=== PATIENT | female | born 1965 | race Caucasian/White ===

== ENCOUNTER → 2023-10-28 08:06 | Outpatient (REF) | payer BC, SELFPAY | LOC: HWWDC 08:06 | PROVIDERS: ATTENDING PHYSICIAN Physician Assistant Medical | DX: Z12.31 Encounter for screening mammogram for malignant neoplasm of breast (principal) | CPT/HCPCS: 77063; 77067 ==

== ENCOUNTER 2024-04-12 10:32 | Inpatient (IN) | payer OTHER, SELFPAY ==
[2024-04-10] VITALS (14 sets, daily range): BP systolic 134–188; BP diastolic 71–101; BMI 36.3; BMI 35.1
--- NOTE | 2024-04-10 13:40 | ED.CVA ---
History of Present Illness
<Orly Guerra PA-C - Last Filed: 04/10/24 23:37>
General
Chief Complaint: CVA/TIA Symptoms
Source: patient and significant other (Boyfriend at bedside)
Exam Limitations: none
Time Seen by Provider: 04/10/24 13:26
Nursing documentation reviewed up to this point in time: agreed with
Onset of Stroke Symptoms
Onset of symptoms known: No
Time pt last seen normal is known: No
History of Present Illness
History of Present Illness:
59-year-old female with history hypertension presenting to the emergency department due to concerns of slurred speech. Apparently�around dinnertime last night, prior to eating patient's boyfriend noted that her speech seemed a little slurred
although patient herself did not notice this. Upon waking this morning�slurred speech was worse and both boyfriend and patient noticed prompting visit to the emergency department.
Patient denies any associated headache, neck pain, numbness/tingling, weakness in extremities currently. No chest pain, shortness of breath, or back pain. No visual changes or confusion. No ataxia. Patient denies any alcohol use or drug use.
Patient denies any history of similar symptoms. No recent trauma.
Past History
<Orly Guerra PA-C - Last Filed: 04/10/24 23:37>
Past History
ED Past Medical History: HTN
ED Past Surgical History: None
Social History
Tobacco: Non-smoker
Personal:
Living: with family
Review of Systems
<Orly Guerra PA-C - Last Filed: 04/10/24 23:37>
Review of Systems
Allergies reviewed?: Yes
All Other Systems: ROS reviewed and negative except as documented in HPI and ROS
Phy Exam
<Orly Guerra PA-C - Last Filed: 04/10/24 23:37>
Physical Exam
Physical Exam:
Vitals: Hypertensive, otherwise vital signs stable. Afebrile
General: Patient is well appearing, no acute distress
Skin: Warm and dry, no rashes or lesions
Head: Normocephalic, atraumatic
Eyes: Sclera nonicteric. EOMs intact. Pupils equal round reactive light bilaterally. Visual booth intact. No nystagmus.
Throat: Protecting airway
Neck: Normal ROM, no cervical spine tenderness, no meningismus
Cardiac: Regular rate and rhythm, no murmurs.
Pulm: Normal respiratory effort, no wheezes, rales, rhonchi heard on exam.
Abdomen: Abdomen soft. No abdominal tenderness.
Extremities: No evidence of cyanosis or edema. Strength 5 out of 5 in upper and lower extremities without drift
Neuro: AAOx3. CN II-XII intact. Very mild. No facial droop or asymmetry. Sensation intact and equal bilaterally. Normal cerebellar exam
Psychiatric: Normal affect.
Scores
<Orly Guerra PA-C - Last Filed: 04/10/24 23:37>
NIH Stroke Score
Level of Consciousness: 0 - Alert
LOC Questions: 0-Answers both correctly
LOC Commands: 0-Performs both correctly
Best Horizontal Gaze: 0-Normal
Visual Booth: 0=Normal, no visual loss
Facial Palsy: 0=Normal, symmetrical
Motor - Right Arm: 0=No drift 10 seconds
Motor - Left Arm: 0=No drift 10 seconds
Motor - Right Le-No drift 5 seconds
Motor - Left Le-No drift 5 seconds
Limb Ataxia: 0-Absent
Sensation: 0-Normal
Best Language: 0-No aphasia
Dysarthria: 1-Mild slurring
Extinction and Inattention: 0-No abnormality
Total Score:: 1
<Violetta Hearn DO - Last Filed: 04/10/24 17:16>
NIH Stroke Score
Total Score:: 1
Course
<Orly Guerra PA-C - Last Filed: 04/10/24 23:37>
Orders/Labs/Results
Orders:
Orders
04/10/24 12:54
Electrocardiogram (*1) Urgent
Reason for Study: Chest Pain
Cardiac Monitoring- Treatment ONCE
EKG- Treatment ONCE
IV Insert/Care/Rem.- Treatment PRN
04/10/24 13:36
Complete Blood Count/With Diff Urgent
Comprehensive Metabolic Panel Urgent
Glycohemoglobin (HgbA1c) Urgent
Troponin I Urgent
04/10/24 13:54
CT Head W/o Iv Contrast Urgent
Comment:
Reason For Exam: Slurred speech
04/10/24 17:09
CT Head & Neck Angio W/wo IV Urgent
Comment: per Neuro
Reason For Exam: slurred speech
Aspirin Chewable [Low Strength Aspirin] 324 mg PO NOW STA
04/10/24 20:23
NEUROLOGY CONSULT Routine
Consulting Provider: Ward Renteria
Was physician already notified: Yes
Reason for consult: Episodic slurred speech since last night
Amlodipine [Norvasc] 5 mg PO NOW STA
Atorvastatin [Lipitor] 40 mg PO NOW STA
Clopidogrel Bisulfate [Plavix] 300 mg PO NOW STA
04/10/24 20:25
Admit/Transfer Patient As Directed
Co-Sign Provider:
Level of Care: Observation services
Assign to:: Telemetry
Physician / Group: luis hale
Diagnosis: Reported slurred speech concerning for TIA/CVA
Reason for Telemetry: CVA/TIA
Date to Stop Telemetry: 04/13/24
Time to Stop Telemetry: 11:00
Code Status As Directed
Resuscitation Status: Full Code
04/10/24 20:27
PRN Pain Medication Management As Directed
May give lesser potent ordered pain med per pt: Yes
preference::
Protocol:: Medication orders for pain may be administered in a
manner that supports deferring to patient preference
when the pt is:
- Requesting an ordered lesser potent pain medication.
Least to most potent pain medications are defined
as: acetaminophen < NSAID < tramadol < opioids
(morphine, oxycodone, hydromorphone).
- Requesting a lesser dose of the same medication IF
ORDERED.
- Requesting a less intrusive route of administration
if both routes are prescribed by the provider (PO <
IV).
04/10/24 21:51
Acetaminophen [Tylenol/Feverall] 650 mg RECTAL Q4HPRN PRN
Acetaminophen [Tylenol] 650 mg PO Q4HPRN PRN
04/10/24 21:51
Case Management Consult ONCE
Case Management Consult: Discharge Planning
Comment: stroke/tia
DIETARY CONSULT Routine
Reason for Consult: stroke/TIA
Home Health Speech Therapist Urgent
MR Brain Without Contrast Routine
Comment:
Reason For Exam: stroke/TIA
OK for patient to be off Cardiac Monitoring for MRI: Yes
Recent pill cam endoscopy?: No
Pacemaker/Defibrillator?: No
Activity As Directed
Activity Level: As Tolerated
NIH Stroke Scale As Directed
Directions: Per protocol
Comment: every shift and with any change in condition or mental status
Neurological Checks As Directed
Frequency: q4h
Additional Instructions:: q4h x 24h upon admission to the floor, then qshift & with any change in condition
and mental status
Patient Education As Directed
Type: Stroke education packet
Comment: provide to patient and family
Pneumatic Compression Sleeves As Directed
Type: Knee high
Vital Signs As Directed
Frequency: Per unit guidelines
Ot Eval And Treat Routine
Pt Eval And Treat Routine
Activity Level: As Tolerated
US Cerebrovascular Routine
Comment:
Reason For Exam: stroke/TIA
DX Deep Vein Thrombosis Video Routine
04/10/24 22:00
Amlodipine [Norvasc] 5 mg PO HS
04/11/24 06:00
Basic Metabolic Panel IN AM
Cardiovascular Evaluation IN AM
Complete Blood Count/With Diff IN AM
04/11/24 08:00
Aspirin Chewable [Low Strength Aspirin] 81 mg PO DAILY
Cetirizine HCl [Zyrtec] 10 mg PO DAILY
Clopidogrel Bisulfate [Plavix] 75 mg PO DAILY
04/11/24 18:00
Atorvastatin [Lipitor] 40 mg PO QPM
04/13/24 11:00
DC Protocol for Telemetry ONCE
Abnormal Lab Results
04/10/24
13:36
Neutrophils % 77.4 H %
(42.2-75.2)
Lymphocytes % 17.1 L %
(20.5-51.1)
BUN 19 H mg/dl
(7-17)
Glucose 109 H mg/dl
(70-99)
04/10/24 13:36
04/10/24 13:36
Vital Signs
Initial and Last Documented VS:
Initial Vital Signs
Temp BP
99.2 F 188/101
04/10/24 12:07 04/10/24 12:07
Last Documented Vital Signs
Temp Pulse Resp BP Pulse Ox
97.8 F 76 18 176/84 96
04/10/24 21:58 04/10/24 21:58 04/10/24 21:58 04/10/24 21:58 04/10/24 21:58
<Violetta Hearn, DO - Last Filed: 04/10/24 17:16>
Orders/Labs/Results
Orders:
Orders
04/10/24 12:54
Electrocardiogram (*1) Urgent
Reason for Study: Chest Pain
Cardiac Monitoring- Treatment ONCE
EKG- Treatment ONCE
IV Insert/Care/Rem.- Treatment PRN
04/10/24 13:36
Complete Blood Count/With Diff Urgent
Comprehensive Metabolic Panel Urgent
Glycohemoglobin (HgbA1c) Urgent
Troponin I Urgent
04/10/24 13:54
CT Head W/o Iv Contrast Urgent
Comment:
Reason For Exam: Slurred speech
04/10/24 17:09
CT Head & Neck Angio W/wo IV Urgent
Comment: per Neuro
Reason For Exam: slurred speech
Aspirin Chewable [Low Strength Aspirin] 324 mg PO NOW STA
04/10/24 20:23
NEUROLOGY CONSULT Routine
Consulting Provider: Ward Renteria
Was physician already notified: Yes
Reason for consult: Episodic slurred speech since last night
Amlodipine [Norvasc] 5 mg PO NOW STA
Atorvastatin [Lipitor] 40 mg PO NOW STA
Clopidogrel Bisulfate [Plavix] 300 mg PO NOW STA
04/10/24 20:25
Admit/Transfer Patient As Directed
Co-Sign Provider:
Level of Care: Observation services
Assign to:: Telemetry
Physician / Group: luis hale
Diagnosis: Reported slurred speech concerning for TIA/CVA
Reason for Telemetry: CVA/TIA
Date to Stop Telemetry: 04/13/24
Time to Stop Telemetry: 11:00
Code Status As Directed
Resuscitation Status: Full Code
04/10/24 20:27
PRN Pain Medication Management As Directed
May give lesser potent ordered pain med per pt: Yes
preference::
Protocol:: Medication orders for pain may be administered in a
manner that supports deferring to patient preference
when the pt is:
- Requesting an ordered lesser potent pain medication.
Least to most potent pain medications are defined
as: acetaminophen < NSAID < tramadol < opioids
(morphine, oxycodone, hydromorphone).
- Requesting a lesser dose of the same medication IF
ORDERED.
- Requesting a less intrusive route of administration
if both routes are prescribed by the provider (PO <
IV).
04/10/24 21:51
Acetaminophen [Tylenol/Feverall] 650 mg RECTAL Q4HPRN PRN
Acetaminophen [Tylenol] 650 mg PO Q4HPRN PRN
04/10/24 21:51
Case Management Consult ONCE
Case Management Consult: Discharge Planning
Comment: stroke/tia
DIETARY CONSULT Routine
Reason for Consult: stroke/TIA
Home Health Speech Therapist Urgent
MR Brain Without Contrast Routine
Comment:
Reason For Exam: stroke/TIA
OK for patient to be off Cardiac Monitoring for MRI: Yes
Recent pill cam endoscopy?: No
Pacemaker/Defibrillator?: No
Activity As Directed
Activity Level: As Tolerated
NIH Stroke Scale As Directed
Directions: Per protocol
Comment: every shift and with any change in condition or mental status
Neurological Checks As Directed
Frequency: q4h
Additional Instructions:: q4h x 24h upon admission to the floor, then qshift & with any change in condition
and mental status
Patient Education As Directed
Type: Stroke education packet
Comment: provide to patient and family
Pneumatic Compression Sleeves As Directed
Type: Knee high
Vital Signs As Directed
Frequency: Per unit guidelines
Ot Eval And Treat Routine
Pt Eval And Treat Routine
Activity Level: As Tolerated
US Cerebrovascular Routine
Comment:
Reason For Exam: stroke/TIA
DX Deep Vein Thrombosis Video Routine
04/10/24 22:00
Amlodipine [Norvasc] 5 mg PO HS
04/11/24 06:00
Basic Metabolic Panel IN AM
Cardiovascular Evaluation IN AM
Complete Blood Count/With Diff IN AM
04/11/24 08:00
Aspirin Chewable [Low Strength Aspirin] 81 mg PO DAILY
Cetirizine HCl [Zyrtec] 10 mg PO DAILY
Clopidogrel Bisulfate [Plavix] 75 mg PO DAILY
04/11/24 18:00
Atorvastatin [Lipitor] 40 mg PO QPM
04/13/24 11:00
DC Protocol for Telemetry ONCE
Abnormal Lab Results
04/10/24
13:36
Neutrophils % 77.4 H %
(42.2-75.2)
Lymphocytes % 17.1 L %
(20.5-51.1)
BUN 19 H mg/dl
(7-17)
Glucose 109 H mg/dl
(70-99)
04/10/24 13:36
04/10/24 13:36
Vital Signs
Initial and Last Documented VS:
Initial Vital Signs
Temp BP
99.2 F 188/101
04/10/24 12:07 04/10/24 12:07
Last Documented Vital Signs
Temp Pulse Resp BP Pulse Ox
97.8 F 76 18 176/84 96
04/10/24 21:58 04/10/24 21:58 04/10/24 21:58 04/10/24 21:58 04/10/24 21:58
<Orly Guerra PA-C - Last Filed: 04/10/24 23:37>
MDM/Problems Addressed
Differential Diagnosis Includes:
Not limited to: Hypertensive urgency, hypertensive emergency, CVA, mass, etc.
MDM/Problems Addressed:
59-year-old female w/ history hypertension presenting with slurred speech ongoing since yesterday without any other neurologic symptoms. No headache, neck pain, visual changes, weakness, numbness/tingling. No trauma. Patient initially with
significant hypertension on arrival although improved by my assessment without intervention. Otherwise she has stable vital signs. Physical exam as above. Patient very well-appearing, no apparent distress. Patient alert and oriented x 3.
Cardio/pulmonary assessment remarkable. Neuroexam with very mild slurred noted only when reading sentences. Patient and patient's significant other do state there is a significant change from her baseline speech. Difficult to appreciate on
physical exam. No other focal deficits noted. Patient has equal strength in bilateral upper and lower extremities and normal sensation. No extremity drift. NIH of 1. Differential include hypertensive urgency/emergency given elevated BP on
arrival. Will check head CT given concern for possible central process, CVA versus mass. Will check basic labs. EKG initiated in triage shows normal sinus rhythm without acute ischemic changes.
Update: Labs reviewed. No clinically significant abnormalities. Blood pressure has remained in 150s/80s. Mild slurred speech remains per patient and boyfriend. CT head shows no acute abnormalities. Ultimately�concern would be CVA. Case was
discussed with neurology on-call who agrees that symptoms are concerning for possible stroke despite negative workup. TNK not indicated given symptoms ongoing since yesterday and NIH of 1. Will check CTA head/neck, give aspirin 324 in ED. Will
admit patient for further stroke workup including MRI, carotid ultrasound, neuroconsult, etc. Patient agreeable with plan and accepted to hospital service in stable condition. Patient seen with attending physician.
Chronic conditions affecting care:
Hypertension
Acute Exacerbation and/or Progression of Chronic Illness:
[place]
<Orly Guerra PA-C - Last Filed: 04/10/24 23:37>
*Radiology
Radiology exam reviewed: preliminary read by ED provider (Head CT reviewed by mo-no acute abnormalities) and radiology read reviewed
*Pulse Oximetry
Patient hypoxic: no
*EKG
Interpreted by ED Provider?: Yes
EKG Intrepretation Date: 04/10/24
Interpretation: normal
Comparison EKG: no changes
Heart Rate: 80
Rate: normal
Rhythm: sinus
[place]: normal axis
Interval: normal QT interval
QRS Pattern: normal QRS
Ischemia: no ischemia
*Hob Mill Operator Interpretation
Rate: normal
Interpretation: normal
Heart Rate: 74
Rhythm: sinus
*Critical Care Note
Total Time (30-74mins, 75-104mins- exclusive of procedures): Not Applicable
<Orly Guerra PA-C - Last Filed: 04/10/24 23:37>
Patient Management
Discussion with other providers: Hospitalist and Junior Accountant (Neurology-Dr. Renteria)
Escalation/DeEscalation of care consider admission/obs:
Admit for stroke workup
ED Attending Note
<Orly Guerra PA-C - Last Filed: 04/10/24 23:37>
-
Portions of this chart may have been created with voice recognition software.� Occasional wrong word or��sound alike� substitutions may have occurred due to the inherent limitations of voice recognition software.
<Violetta Hearn DO - Last Filed: 04/10/24 17:16>
ED Attending Note
Patient seen and examined by attending physician: Yes
I performed a history and physical exam of patient and discussed management with resident, I reviewed resident's note and agree with documented findings and plan of care.: Yes
ED Attending Note:
59-year-old woman with history of hypertension, maintained on amlodipine presents with slurred speech that began yesterday evening around dinnertime. First noted by her significant other and continues today, also noted by patient. She denies word
searching, no stuttering but intermittent slurring of her words. No other associated symptoms, no headache, no weakness or numbness, no difficulty with ambulation. No history of similar episodes in the past.
Significant hypertension noted initially, has improved without specific intervention.
No focal neurodeficits on exam save for very minimal intermittent slurring of words noted most noted when patient is reading out loud. No hesitation nor word searching.
Concern for CVA.
Labs are unremarkable.
Plain CT of the head is unremarkable.
EKG shows normal sinus rhythm, no acute ST-T wave abnormalities.
Case discussed with neurology. Agree that symptoms are concerning for stroke.
Recommending CTA head and neck, dual antiplatelet, Lipitor 40 mg. Will admit for observation for stroke workup.
Patient agreeable with this plan.
Discharge Plan
Departure
Patient Disposition: Admit
Date of Disposition: 04/10/24
Time of Disposition: 17:45
Presentation/result/management discussed w/ accepting MD/DO: Hospitalist
Discharge Problem:
Slurred speech
Interventions
Interventions:
*Risk Screen - Suicide Last Done: 04/10/24 21:58
*General Assessment Last Done: 04/10/24 12:38
*Neglect/Abuse Screening Last Done: 04/10/24 12:07
ED- Fall Risk Assessment Last Done: 04/10/24 12:38
*ED COVID-19 Vaccine History Last Done: 04/10/24 21:58
*Nursing Disposition Last Done: 04/10/24 21:39
ED- Pulmonary Assessment Last Done: 04/10/24 19:59
ED- Neurological Assessment Last Done: 04/10/24 19:59
ED- Cardiac Assessment Last Done: 04/10/24 19:59
ED Swallowing Screen Last Done: 04/10/24 12:39
Discharge Date and Time
Discharge Date/Time: 04/10/24 21:41
[2024-04-10 13:44] LABS: % Basophils 0.4 % (0-2); % Eosinophils 0.1 % (0-6); % Immature Granulocytes 0.3 % (0-0.5); % Lymphocytes 17.1 % (20.5-51.1); % Monocytes 4.7 % (1.7-9.3); % Neutrophils 77.4 % (42.2-75.2); Absolute Lymphocytes 1.3 10^3/uL (1.2-3.4); Absolute Monocytes 0.4 10^3/uL (0.1-0.6); Absolute Neutrophils 6.1 10^3/uL (1.4-6.5); Hematocrit 44.1 % (37.0-47.0); Hemoglobin 14.9 g/dL (12.0-16.0); Mean Corp Hgb Conc. 33.8 g/dL (33.0-37.0); Mean Corpuscular Hgb 29.4 pg (27.0-31.0); Mean Corpuscular Volume 87.2 fL (81.0-99.0); Mean Platelet Volume 10.2 fL (7.4-10.4); Nucleated Red Blood Cells % 0 %; Platelet Count 303 10^3/uL (130-400); Red Blood Cell Count 5.06 10^6/uL (4.20-5.40); White Blood Cell Count 7.8 10^3/uL (4.8-10.8)
[2024-04-10 14:01] LABS: ALT (SGPT) 20 U/L (0-35); AST (SGOT) 24 U/L (14-36); Albumin 4.4 g/dl (3.5-5.0); Alkaline Phosphatase 110 U/L (38-126); Blood Urea Nitrogen 19 mg/dl (7-17); Calcium 9.7 mg/dl (8.4-10.2); Carbon Dioxide 27 mmol/L (22-30); Chloride 103 mmol/L (98-107); Estimated Creatinine Clearance 94 ml/min; Glucose 109 mg/dl (70-99); Potassium 4.2 mmol/L (3.5-5.1); Sodium 141 mmol/L (135-145); Total Bilirubin 0.7 mg/dl (0.2-1.3); Total Protein 7.2 g/dl (6.3-8.2); eGFR > 60.00
[2024-04-10 14:27] LABS: Troponin I < 0.012 ng/ml
[2024-04-10] MEDS: LOW STRENGTH ASPIRIN 324 MG PO (18:02)
--- NOTE | 2024-04-10 19:44 | HPS.HSE ---
Family Physician
-
Family Physician: * NONE
Chief Complaint
-
Reported thickened slurred speech episodic since last night 04/09/2024
History of Present Illness
59-year-old female complaining of slurred speech starting around dinnertime last night 04/09/2024. Prior to eating the patient's boyfriend noticed that her speech seemed a little slurred. When in the room speaking with the patient's daughter and
boyfriend they state that some words sound thick as though she had Novocain at the doctor's office. They still appreciate some words when she is talking during my exam however I do not hear any thickness, slurred speech dysarthria or expressive
aphasia. Upon waking this morning slurred speech was worse they decided to come to the emergency room for evaluation. Patient denies headache, blurred vision, numbness, tingling, weakness in extremities, fever, chills, chest pain, palpitations,
cough, shortness of breath, abdominal pain, nausea, vomiting, diarrhea, urinary symptoms. She denies alcohol or drug use. She has past medical history of hypertension she presented with blood pressure 188/101. She was given aspirin 324 mg
chewable in the ER. She had negative CT head. Her CTA head and neck is pending, she has past medical history of hypertension, class I obesity. Patient reports brother has unknown type of clotting disorder I strongly urged patient to get herself
tested to make sure she is also not a carrier.
Medical History
Past Medical History
Past Medical History: Reports Other
Additional Past Medical History:
Hypertension
Class I obesity�BMI 36.3
Renal calculi
Past Surgical History: Reports Other
Additional Past Surgical History:
Cholecystectomy
Kidney stone removal 2020
Social History
Tobacco: Non-smoker
Alcohol: None
Drug: None
Personal: Single
Living: With Family (Boyfriend)
Family History
Family History: Other (Father alive retired surgeon will not tell family any of his medical history, brother history of clotting disorder unknown type, mother after slip and fall/failure to thrive, 2 brothers eldest with hypertension)
Allergies / Home Medications
Allergies reflects when Allergies were last updated in [employer].
Home Medications with original date entered in [employer]
Allergy/Medication List:
Allergies
Allergy/AdvReac Type Severity Reaction Status Date / Time
seasonal Allergy Itching Uncoded 04/10/24 12:06
Home Medications
amlodipine 5 mg tablet 5 mg PO HS 04/14/21
cetirizine 10 mg tablet 10 mg PO DAILY 04/10/24
Review of Systems
-
History Source: Patient and Family (Boyfriend and daughter at bedside)
A 12 point ROS was completed and negative except as noted: Yes
Constitutional: Denies Fever, Fatigue or Night Sweats
EENT: Reports Other (Reported episodic thick sounding words with speech since last night when talking in sentences); Denies Sore Throat
Physical Exam
Vital Signs
Vital Signs
Temp Pulse Resp BP Pulse Ox
99.2 F 82 17 151/82 96
04/10/24 12:07 04/10/24 18:00 04/10/24 18:00 04/10/24 18:00 04/10/24 18:00
Physical Exam
General: Comfortable, Conversant and Obese; No Fever, Chills or Slurred Speech
HEENT: NormoCephalic, Anicteric, Moist mucous membranes, PERRLA, [place] Conjunctivae, No Ptosis and Other (Reported episodic thick sounding words with speech since last night when talking in sentences)
Respiratory: Clear; No Wheezes, Rales or Rhonchi
Cardiac: S1/S2 and Regular Rhythm; No Murmur, Rub, Gallop or Peripheral Edema
GI: Soft, Non Tender, Non Distended, Normal Bowel Sounds and No Hepatosplenomegaly
Genito-urinary: Deferred by me
Musculoskeletal: No Clubbing, No Cyanosis and No Edema
Skin: Warm and Dry; No Rash or Jaundice
Neuro: AO x 3, No Motor Deficits, Nonfocal/grossly intact, Cranial Nerves Intact, No Sensory Deficits, DTR's Intact & Symmetrical and Other (5 out of 5 upper and lower motor strength, strong shoulder shrug,); No Slurred Speech, Facial Droop, Tremors
or Sedated
Psych: Calm
Laboratory Results
-
04/10/24 13:36
04/10/24 13:36
Laboratory Results
Total Bilirubin 0.7 mg/dl (0.2-1.3) 04/10/24 13:36
AST 24 U/L (14-36) 04/10/24 13:36
ALT 20 U/L (0-35) 04/10/24 13:36
Alkaline Phosphatase 110 U/L (38-126) 04/10/24 13:36
Troponin I < 0.012 ng/ml 04/10/24 13:36
Data Reviewed
-
CT Scan: Report Reviewed by me
Lab Data: Labs Reviewed by me
Impression/Plan
-
Impression/plan:
Observation telemetry
#Slurred speech concerning for possible TIA/CVA
Symptoms started last evening 04/09/2024
-CTA head neck pending
-Consult neurology
-MRI brain in a.m.
-Ultrasound carotids
-Check lipid panel, HgbA1c
-Start Plavix 300 mg, then 75 mg twice daily x 21 days
-Start Lipitor 40 mg at bedtime
-Aspirin 324 mg given in ER, continue aspirin 81 mg daily
-Continue BP control with amlodipine 5 mg p.o. at bedtime
Consult PT/OT/case management
#HTN�benign
BP 188/108 self corrected to 151/82
-Continue amlodipine 5 mg at bedtime
-Will give patient amlodipine 5 mg now as she missed her 6 PM dose
-Resume amlodipine 5 mg 6 PM daily
#Seasonal allergies
Continue cetirizine 10 mg p.o. daily
DVT prophylaxis
SCDs
Full code
--- NOTE | 2024-04-10 20:12 | W.PN.UPDATE ---
Update Note
Progress Note Update
This note serves as an addendum to the H&P by ball warper tender BANDAR Shamika HAIRSTON
HPI
59F HX HTN seen at ER ;
- evaluation for worsening slurred speech started yesterday
- no focal neurological symptoms at the time of presentation to ER
- witness obvious change of speech compare to baseline per BF
PHX; as above
Reviewed VS: T 99.2 BP 150/80
PE
Gen: NAD
HEENT:
Neck:
Lungs:
Cor:
Abdomen:
FATS AND OILS LOADER:
MS:
Psych:
Data
nl CBC
nl CMP
NEG TPNI
EKG
NORMAL SINUS RHYTHM
MINIMAL VOLTAGE CRITERIA FOR LVH, MAY BE NORMAL VARIANT ( R in aVL )
BORDERLINE ECG
WHEN COMPARED WITH ECG OF 23-APR-2021 12:49,
NO SIGNIFICANT CHANGE WAS FOUND
HCT
- No acute intracranial abnormality noted.
CT Head & Neck Angio W/wo IV
- Mild calcified plaque involving the origin of the left internal carotid artery, with estimated luminal diameter reduction of 40-50%.
- No other significant cervical carotid or vertebral artery plaque, and no critical stenosis, dissection, or occlusion.
- No round [place] region aneurysm or stenosis.
- No cerebral artery significant plaque, stenosis, thrombus, or occlusion.
NO PRIOR hospitalist admission:
ASSESSMENT & PLAN
Altered speech since yesterday with other neurologic symptoms
- Difficult to appreciate on exam but patient and boyfriend notice obvious change from baseline.
Stable.
- Hypertensive on arrival although improved without intervention.
- NEG HCT , NEG H & N CTA w/wo
- received ASA 324
- Plavix loading dose and start lipitor 40 PM per Neuro d/ew ER attd
- Admitting for further CVA workup including MRI, carotid US
- Neuro consulted
HTN ; suboptimal control
Essential HTN
- add IV Hydralazine PRN
- c/w Amlodipine
DVT Px: SCD
Full code IP TLM
Obs TLM
[2024-04-10] MEDS: PLAVIX 300 MG PO (20:54)
[2024-04-10] MEDS: NORVASC 5 MG PO (20:54)
[2024-04-10] MEDS: LIPITOR 40 MG PO (20:58)
--- NOTE | 2024-04-10 21:55 | PTCARENOTE ---
Pt arrived from ED via stretcher and ambulated to bed. Pt is AAOx3, VSS, and w/o complaints of pain. Pt is oriented to room with call richard within reach.
[2024-04-11 03:39] VITALS: BP 163/93
[2024-04-11 07:03] LABS: % Basophils 0.5 % (0-2); % Eosinophils 2.1 % (0-6); % Immature Granulocytes 0.2 % (0-0.5); % Lymphocytes 30.5 % (20.5-51.1); % Monocytes 6.4 % (1.7-9.3); % Neutrophils 60.3 % (42.2-75.2); Absolute Eosinophils 0.1 10^3/uL (0-0.7); Absolute Lymphocytes 1.9 10^3/uL (1.2-3.4); Absolute Monocytes 0.4 10^3/uL (0.1-0.6); Absolute Neutrophils 3.8 10^3/uL (1.4-6.5); Hematocrit 41.9 % (37.0-47.0); Hemoglobin 14.8 g/dL (12.0-16.0); Mean Corp Hgb Conc. 35.3 g/dL (33.0-37.0); Mean Corpuscular Volume 87.7 fL (81.0-99.0); Mean Platelet Volume 10.8 fL (7.4-10.4); Nucleated Red Blood Cells % 0 %; Platelet Count 321 10^3/uL (130-400); Red Blood Cell Count 4.78 10^6/uL (4.20-5.40); Red Cell Dist. Width 12.9 % (11.5-14.5); White Blood Cell Count 6.2 10^3/uL (4.8-10.8)
[2024-04-11 07:27] LABS: Blood Urea Nitrogen 20 mg/dl (7-17); Calcium 9.3 mg/dl (8.4-10.2); Carbon Dioxide 25 mmol/L (22-30); Chloride 105 mmol/L (98-107); Estimated Creatinine Clearance 92 ml/min; Glucose 94 mg/dl (70-99); HDL Cholesterol 55 mg/dl; LDL Cholesterol, Calculated 168 mg/dl; Potassium 3.9 mmol/L (3.5-5.1); Sodium 139 mmol/L (135-145); Total Cholesterol 239 mg/dl (50-199); Triglyceride 83 mg/dl (10-149); Very Low Density Lipoprotein 16 mg/dl (0-30); eGFR > 60.00
[2024-04-11 07:30] VITALS: BP 138/85
--- NOTE | 2024-04-11 07:39 | CON.NEURO ---
Consultation
Order
Date of Consultation: 04/11/24
Requesting Provider: Shamika Pizarro CRNP
Reason for Consult: Episodic slurred speech
Neurology Consultation Note.
HPI: This is a 59-year-old RH woman who presented to [facility] on 03/10/2024 with dysarthria. According to the patient she has had intermittent dysarthria which was first noticed on 04/09/2024 night. The patient reports that the
dysarthria is not specifically prominent in the morning or evening. She believes the condition is improving. She denies associated symptoms such as dysphagia, diplopia, blurred vision, ptosis, headaches, or unilateral weakness.
ER VS: 188/101, 79, afebrile.
EKG: NSR, QTc Int : 440 ms
PDMP: none
Labs: Glucose�109, normal sodium, WBCs, creatinine, LDL�168.
CT head wo contrast-unremarkable
CTA head/neck�unremarkable
PMH: HTN, BMI 35, nephrolithiasis,
PSH: cholecystectomy, lithotripsy
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
FH: Brother�unspecified coagulopathy
All: NKDA
ROS: Constitutional: Negative. Negative for chills, fever and unexpected weight change.
HENT: Negative for ear pain, hearing loss, tinnitus and trouble swallowing.
Eyes: Negative. Negative for photophobia, pain and visual disturbance.
Respiratory: Negative for cough, choking and shortness of breath.
Cardiovascular: Negative for chest pain, palpitations and leg swelling.
Gastrointestinal: Negative for abdominal pain and vomiting.
Endocrine: Negative. Negative for cold intolerance.
Genitourinary: Negative for dysuria, flank pain and urgency.
Musculoskeletal: Negative for back pain, gait problem, neck pain and neck stiffness.
Skin: Negative for rash.
Allergic/Immunologic: Negative. Negative for immunocompromised state.
Neurological: Positive for dysarthria
Psychiatric/Behavioral: Negative for behavioral problems, confusion and hallucinations.
General: Well developed. In no acute distress.
Cardio: Regular rate and rhythm without murmur. Extremities are without cyanosis or edema.
Neuro:
Mental Status: Alert, oriented to person, place, and date. Normal attention and recall. Good fund of knowledge. Follows complex requests across the midline. Comprehension, naming, and repetition intact. Immediate and delayed recall 3/3.
Cranial Nerves: Pupils are equally round and reactive to light. EOMs full. Visual matta full to confrontation. No ptosis. No nystagmus. V1-V3 intact to light touch and pinprick bilaterally, symmetric. Face symmetric. Normal hearing AU. The
palate elevated well. SCMs and traps 5/5. Tongue midline. Mild lingual dysarthria
Motor: Normal bulk and tone. No pronator or arm drift. Strength 5/5 throughout. No clonus.
Reflexes: 3+ throughout the upper extremities and knees. 2/2 in AJs. Plantar responses flexor bilaterally. Garces's�positive bilaterally
Sensory: Normal pinprick, vibration and JPS.
Coordination: No dysmetria or tremor.
Gait: deferred
Assessment and Plan:
I. Intermittent lingual dysarthria. Differential diagnosis includes vascular versus neuromuscular junction disorder
II. Pathological hyperreflexia
III.Hypertensive urgency
IV. DLP
-Telemetry monitoring
-Strict blood pressure and lipid control
-Continue aspirin 81 mg once a day
-brain MRI without contrast
-Myelopathy blood work
-Please check TFTs and MG panel if brain MRI is unremarkable.
I personally reviewed all radiology and labs along with past medical records pertinent to current medical problems. Total time spent in patient care is 61 minutes.
Thank you for allowing us to participate in the care of this patient. We will continue to follow. Please do not hesitate to contact us with any questions or concerns.
Subjective/Objective
Subjective Data
Date of Service: April 11, 2024
Objective Data
Vital Signs
Temp Pulse Resp BP Pulse Ox
36.6 C 80 18 163/93 98
04/11/24 03:39 04/11/24 03:39 04/11/24 03:39 04/11/24 03:39 04/11/24 03:39
Lab Results
04/11/24 06:02
04/11/24 06:02
Sodium 139 mmol/L (135-145) 04/11/24 06:02
Potassium 3.9 mmol/L (3.5-5.1) 04/11/24 06:02
BUN 20 mg/dl (7-17) H 04/11/24 06:02
Glucose 94 mg/dl (70-99) 04/11/24 06:02
Calcium 9.3 mg/dl (8.4-10.2) 04/11/24 06:02
LDL Cholesterol, Calc 168 mg/dl 04/11/24 06:02
Patient Allergies
seasonal Allergy (Uncoded 04/10/24 12:06)
Itching
Medications
-
Active Medications
Generic Name Dose Route Start Last Admin
Trade Name Freq PRN Reason Stop Dose Admin
Acetaminophen 650 mg 04/10/24 21:51
Acetaminophen 650 Mg Rectal Suppository RECTAL 05/08/24 21:50
Q4HPRN PRN
VARELA, mild pain, or temp >100.4F
Acetaminophen 650 mg 04/10/24 21:51
Acetaminophen 325 Mg Tablet PO 05/08/24 21:50
Q4HPRN PRN
VARELA, mild pain, or temp >100.4F
Amlodipine Besylate 5 mg 04/11/24 22:00
Amlodipine 5 Mg Tablet PO 05/09/24 21:59
HS TAB
Aspirin 81 mg 04/11/24 08:00
Aspirin 81 Mg Chewable Tablet PO 05/09/24 07:59
DAILY TAB
Atorvastatin Calcium 40 mg 04/11/24 18:00
Atorvastatin (Lipitor) 40 Mg Tablet PO 05/09/24 17:59
QPM TAB
Cetirizine HCl 10 mg 04/11/24 08:00
Cetirizine Hcl 10 Mg Tablet PO 05/09/24 07:59
DAILY TAB
Clopidogrel Bisulfate 75 mg 04/11/24 08:00
Clopidogrel 75 Mg Tablet PO 05/02/24 07:59
DAILY TAB
Sodium Chloride 0 flush 04/10/24 23:00
Sodium Chloride 0.9% (Flush) Syringe IV 05/08/24 22:59
PER PROTOCOL TAB
Home Medications
�Medication �Instructions �Recorded
amlodipine 5 mg tablet 5 mg PO HS 04/14/21
cetirizine 10 mg tablet 10 mg PO DAILY 04/10/24
Vital Signs and Labs
-
Vital Signs and Labs:
Vital Signs
Temp Pulse Resp BP Pulse Ox
36.6 C 80 18 163/93 98
04/11/24 03:39 04/11/24 03:39 04/11/24 03:39 04/11/24 03:39 04/11/24 03:39
Lab Results
04/11/24 06:02
04/11/24 06:02
Sodium 139 mmol/L (135-145) 04/11/24 06:02
Potassium 3.9 mmol/L (3.5-5.1) 04/11/24 06:02
BUN 20 mg/dl (7-17) H 04/11/24 06:02
Glucose 94 mg/dl (70-99) 04/11/24 06:02
Calcium 9.3 mg/dl (8.4-10.2) 04/11/24 06:02
LDL Cholesterol, Calc 168 mg/dl 04/11/24 06:02
Medications
-
Medications:
Generic Name Dose Route Start Last Admin
Trade Name Freq PRN Reason Stop Dose Admin
Acetaminophen 650 mg 04/10/24 21:51
Acetaminophen 650 Mg Rectal Suppository RECTAL 05/08/24 21:50
Q4HPRN PRN
VARELA, mild pain, or temp >100.4F
Acetaminophen 650 mg 04/10/24 21:51
Acetaminophen 325 Mg Tablet PO 05/08/24 21:50
Q4HPRN PRN
VARELA, mild pain, or temp >100.4F
Amlodipine Besylate 5 mg 04/11/24 22:00
Amlodipine 5 Mg Tablet PO 05/09/24 21:59
HS TAB
Aspirin 81 mg 04/11/24 08:00
Aspirin 81 Mg Chewable Tablet PO 05/09/24 07:59
DAILY TAB
Atorvastatin Calcium 40 mg 04/11/24 18:00
Atorvastatin (Lipitor) 40 Mg Tablet PO 05/09/24 17:59
QPM TAB
Cetirizine HCl 10 mg 04/11/24 08:00
Cetirizine Hcl 10 Mg Tablet PO 05/09/24 07:59
DAILY TAB
Clopidogrel Bisulfate 75 mg 04/11/24 08:00
Clopidogrel 75 Mg Tablet PO 05/02/24 07:59
DAILY TAB
Sodium Chloride 0 flush 04/10/24 23:00
Sodium Chloride 0.9% (Flush) Syringe IV 05/08/24 22:59
PER PROTOCOL TAB
Home Medications
-
Home Medications
amlodipine 5 mg tablet 5 mg PO HS 04/14/21
cetirizine 10 mg tablet 10 mg PO DAILY 04/10/24
[2024-04-11 09:05] LABS: Glycohemoglobin (HgbA1c) 5.7 % (4.0-5.6)
[2024-04-11] MEDS: PLAVIX 75 MG PO (09:54)
[2024-04-11] MEDS: ZYRTEC 10 MG PO (09:54)
[2024-04-11] MEDS: LOW STRENGTH ASPIRIN 81 MG PO (09:54)
--- NOTE | 2024-04-11 09:54 | CM ---
Patient seen bedside.
Patient lives with significant other in 1 story home.
Independent prior admission without assistive device.
Patient has not had VN in the past.
Patient works and drives.
PCP: Ava Martinez
Pharmacy: [facility]
Observation form completed.
Plan: home no needs anticiapted
--- NOTE | 2024-04-11 10:20 | W.PN.HOSP.TC ---
Addendum entered and electronically signed by Juan Sykes MD 04/11/24 22:36:
Attending Addendum-
I saw and evaluated the patient. I reviewed the resident�s note and agree with findings and plan as documented in the resident�s note. Sub: states that surring of speech gets better throughout the day. Denies any other neurological symptoms. Denies
CP palps. Full 12 point ROS reviewed and negative except as documented Exam: Vitals reviewed in chart GEN-NAD heart RRR no murmurs lungs claer abd soft LE no edema Neuro AAOx3 MS 06/27 sensation intact speech fluent no facial droop CN 2-12 GI
# Acute CVA
-appreciate neurology input
-MRI brain 04/11-1.1 cm focus of restricted diffusion within the right centrum semiovale/alicea radiata of the right frontal lobe consistent with acute infarction
-Ultrasound carotids-Mild mixed plaque right carotid bulb and internal carotid artery. Mild left carotid bulb mixed plaque. Velocity profiles consistent with 50% bilateral internal carotid artery stenosis
-LDL-168, [id number]-0.7
-completed Plavix 300 load, cont 75 mg daily x 21 days
-Start Lipitor 40 mg at bedtime
-Aspirin 324 mg given in ER, continue aspirin 81 mg daily
-Continue BP control with amlodipine goal for normotension in 24 hours
-check echo
-Consult PT/OT/case management
#HTN�benign
-Continue amlodipine
-lisinopril added per neuro
#Seasonal allergies
Continue cetirizine 10 mg p.o. daily
DVT prophylaxis
SCDs
Full code
Time spent coordinating care, review of plan of care with resident, personally reviewed records in EMR, med rec, consults, notes, labs, radiology, d/w nursing � 55 mins
Original Note:
Today's Communication/Plan
-
Continue Plavix, atorvastatin, aspirin.
Lisinopril per neuro
Assessment / Plan
Assessment / Plan
59-year-old female presented to ER on 03/10/2024 with dysarthria.
Brain MRI 04/11/2024: 1.1 cm focus of restricted diffusion within the right centrum semiovale/alicea radiata of the right frontal lobe consistent with acute infarction.
# Dysarthria-intermittent
# Acute infarct
-- Difficult to appreciate on exam but patient and boyfriend notice obvious change from baseline.
-- Neg HCT , Neg H & N CTA w/wo
-- received ASA 324
-- Plavix loading dose in the ER and now and continue with 75 mg p.o. daily
-- Start lipitor 40 PM per Neuro the ER
-- carotid US: Mild mixed plaque right carotid bulb and internal carotid artery. Mild left carotid bulb mixed plaque. Velocity profiles consistent with 50% bilateral internal carotid artery stenosis. Antegrade flow bilateral vertebral arteries
-- MRI above ; neuro input appreciated
-- Continue aspirin 81 mg p.o. daily
-- ESR and CRP elevated
-- Vitamin B12 and folate within normal limits
# Hypertension; suboptimal control
-- IV Hydralazine PRN
-- Amlodipine 5 mg at bedtime; home regimen
-- Lisinopril 2.5 mg p.o. daily added by neuro
Full code
Anticipated Discharge: Within 24 hours
Subjective/Interval History
-
Date of Service: April 11, 2024
Patient report she continues to notice slurred speech and family has the same opinion
Objective Data
-
Labs:
Laboratory Results
04/11/24
06:02
WBC 6.2
Hgb 14.8
Hct 41.9
Plt Count 321
Sodium 139
Potassium 3.9
Chloride 105
Carbon Dioxide 25
BUN 20 H
Creatinine 0.7
Glucose 94
Calcium 9.3
Vital Signs:
Vital Signs
Temp Pulse Resp BP Pulse Ox
97.8 F 83 18 138/85 99
04/11/24 07:30 04/11/24 07:30 04/11/24 07:30 04/11/24 07:30 04/11/24 07:30
I&O
04/10/24 04/11/24 04/12/24
06:59 06:59 06:59
Intake Total 0 / 0
Balance 0 / 0
Review of Systems
-
History Source: Patient
Respiratory: Reports No Symptoms
Cardiac: Reports No Symptoms
Abdomen/GI: Reports No Symptoms
Neuro: Reports Other (Slurred speech); Denies Dizzy, Headache, Weakness or Lightheadedness
Physical Exam
-
General: Well Developed, Well Nourished and No Apparent Distress
HEENT: Normocephalic and Atraumatic
Respiratory: Clear to Auscultation
Cardiac: Regular Rhythm
GI: Soft and Nontender
Musculoskeletal: No Clubbing
Skin: Warm and Dry
Neuro: Awake, Alert, Oriented, No Motor Deficits, Central Nerve's Intact and No Sensory Deficits
Psych: Calm
Data Reviewed
-
CT Scan: Report Reviewed by me
Ultrasound: Report Reviewed by me
MRI: Report Reviewed by me
Labs: Labs Reviewed by me, Discussed with Physician and Discussed with Patient
[2024-04-11 11:14] VITALS: BP 158/88
[2024-04-11] MEDS: ZESTRIL 2.5 MG PO (13:04)
[2024-04-11 14:12] LABS: Erythrocyte Sed Rate 38 mm/hour (0-20)
[2024-04-11 14:56] LABS: Folate 10.1 ng/ml (2.76-20); Vitamin B12 458 pg/ml (239-931)
[2024-04-11 15:23] VITALS: BP 143/90
[2024-04-11] MEDS: LIPITOR 40 MG PO (17:16)
[2024-04-11 19:08] VITALS: BP 144/81
[2024-04-11] MEDS: NORVASC 5 MG PO (21:30)
[2024-04-11 23:43] VITALS: BP 157/84
[2024-04-12 03:10] VITALS: BP 147/85
--- NOTE | 2024-04-12 07:08 | W.PN.HOSP.TC ---
Addendum entered and electronically signed by Juan Sykes MD 04/12/24 23:34:
Attending Addendum-
I saw and evaluated the patient. I reviewed the resident�s note and agree with findings and plan as documented in the resident�s note. Sub: NAEON, slurring of speech gets better throughout the day but improved. Denies any other neurological
symptoms. Denies CP palps. Seen with friend and boyfriend Full 12 point ROS reviewed and negative except as documented Exam: Vitals reviewed in chart GEN-NAD heart RRR no murmurs lungs claer abd soft LE no edema Neuro AAOx3 MS 5/ sensation intact
speech fluent no facial droop CN 2-12 GI
# Acute CVA
-appreciate neurology input
-MRI brain 04/11-1.1 cm focus of restricted diffusion within the right centrum semiovale/alicea radiata of the right frontal lobe consistent with acute infarction
-Ultrasound carotids-Mild mixed plaque right carotid bulb and internal carotid artery. Mild left carotid bulb mixed plaque. Velocity profiles consistent with 50% bilateral internal carotid artery stenosis
-LDL-168, [id number]
-completed Plavix 300 load, cont 75 mg daily x 21 days
-cont Lipitor 40 mg at bedtime
-Aspirin 324 mg given in ER, continue aspirin 81 mg daily
-Continue BP control with amlodipine goal for normotension in 24 hours
-echo 04/11- 1. Left ventricle: Normal size and function with an estimated ejection fraction of 55-60%. Normal diastolic function
-OP speech PT and OT
-desk monitor placed prior to DC by cards- f/u as OP
#HTN�benign
-Continue amlodipine
-lisinopril added per neuro
#Seasonal allergies
Continue cetirizine 10 mg p.o. daily
DVT prophylaxis
SCDs
Full code
Time spent coordinating care, DC planning, review of DC plan of care with resident, transition of care, review of records, med rec/scripts sent electronically, consults, notes, d/w consultants, nursing, family, cards and CM� 33 mins
Original Note:
Today's Communication/Plan
-
Continue aspirin 81 indefinitely
Continue Plavix daily for 21 days
Follow-up with neurology outpatient
Follow-up with PCP in 1 week consider uptitrating lisinopril if blood pressure remain elevated.
outpatient [facility]
Assessment / Plan
Assessment / Plan
59-year-old female presented to ER on 03/10/2024 with dysarthria.
Brain MRI 04/11/2024: 1.1 cm focus of restricted diffusion within the right centrum semiovale/alicea radiata of the right frontal lobe consistent with acute infarction.
# Dysarthria-intermittent
# Acute cva
-- Difficult to appreciate on exam but patient and boyfriend notice obvious change from baseline.
-- Neg HCT , Neg H & N CTA w/wo
-- LDL 168, A1c 5.7
-- s/p ASA 324; continue asa 81mg indefinitely
-- Plavix loading dose in the ER and now and continue with Plavix 75 mg p.o. daily for 21 days- day 2
-- Continue lipitor 40 milligram at bedtime; repeat lipid profile in 2 to 3 months if LDL is not<70 consider uptitrating statin.
-- carotid US: Mild mixed plaque right carotid bulb and internal carotid artery. Mild left carotid bulb mixed plaque. Velocity profiles consistent with 50% bilateral internal carotid artery stenosis. Antegrade flow bilateral vertebral arteries
-- MRI above ; neuro input appreciated
-- ESR and CRP elevated
-- Vitamin B12 and folate within normal limits
-- TSH within normal limit
-- Speech therapy recommended outpatient [facility] and brochure was provided to the patient.
# Hyper tensive urgency on admission(188/101)
# Hypertension; suboptimal control
-- IV Hydralazine PRN
-- Amlodipine 5 mg at bedtime; home regimen
-- Lisinopril 2.5 mg p.o. daily per neuro; consider uptitrating if blood pressure remains elevated outpatient.
-- Overall blood pressure improved during hospital stay
# Seasonal
-- Continue home cetirizine 10 mg daily
Full code
Anticipated Discharge: Today
Subjective/Interval History
-
Date of Service: April 12, 2024
Patient reports ongoing slurred speech however daughter Shaye on the phone states she noticed improvement as compared to yesterday.
Objective Data
-
Labs:
Laboratory Results
04/12/24
06:58
WBC Pending
Hgb Pending
Hct Pending
Plt Count Pending
Sodium Pending
Potassium Pending
Chloride Pending
Carbon Dioxide Pending
BUN Pending
Creatinine Pending
Glucose Pending
Calcium Pending
Vital Signs:
Vital Signs
Temp Pulse Resp BP Pulse Ox
97.9 F 66 17 147/85 99
04/12/24 03:10 04/12/24 03:10 04/12/24 03:10 04/12/24 03:10 04/12/24 03:10
I&O
04/11/24 04/12/24 04/13/24
06:59 06:59 06:59
Intake Total 0 / 0 720 / 720
Balance 0 / 0 720 / 720
Review of Systems
-
History Source: Patient
Respiratory: Reports No Symptoms
Cardiac: Reports No Symptoms
Abdomen/GI: Reports No Symptoms
Neuro: Reports Other (Slurred speech); Denies Dizzy, Headache, Weakness or Lightheadedness
Physical Exam
-
General: Well Developed, Well Nourished and No Apparent Distress
HEENT: Normocephalic and Atraumatic
Respiratory: Clear to Auscultation
Cardiac: Regular Rhythm
GI: Soft and Nontender
Musculoskeletal: No Clubbing
Skin: Warm and Dry
Neuro: Awake, Alert, Oriented, No Motor Deficits, Central Nerve's Intact and No Sensory Deficits
Psych: Calm
Data Reviewed
-
MRI: Report Reviewed by me
Labs: Labs Reviewed by me, Discussed with Physician and Discussed with Patient
[2024-04-12 07:37] LABS: % Basophils 0.3 % (0-2); % Eosinophils 3.4 % (0-6); % Immature Granulocytes 0.3 % (0-0.5); % Lymphocytes 24.7 % (20.5-51.1); % Monocytes 6.3 % (1.7-9.3); Absolute Eosinophils 0.2 10^3/uL (0-0.7); Absolute Lymphocytes 1.5 10^3/uL (1.2-3.4); Absolute Monocytes 0.4 10^3/uL (0.1-0.6); Absolute Neutrophils 4.1 10^3/uL (1.4-6.5); Hematocrit 42.2 % (37.0-47.0); Hemoglobin 14.5 g/dL (12.0-16.0); Mean Corp Hgb Conc. 34.4 g/dL (33.0-37.0); Mean Corpuscular Hgb 29.8 pg (27.0-31.0); Mean Corpuscular Volume 86.8 fL (81.0-99.0); Mean Platelet Volume 10.5 fL (7.4-10.4); Nucleated Red Blood Cells % 0 %; Platelet Count 290 10^3/uL (130-400); Red Blood Cell Count 4.86 10^6/uL (4.20-5.40); Red Cell Dist. Width 12.7 % (11.5-14.5); White Blood Cell Count 6.2 10^3/uL (4.8-10.8)
[2024-04-12 07:50] VITALS: BP 160/88
[2024-04-12 08:02] LABS: Blood Urea Nitrogen 24 mg/dl (7-17); Calcium 9.5 mg/dl (8.4-10.2); Carbon Dioxide 23 mmol/L (22-30); Chloride 104 mmol/L (98-107); Estimated Creatinine Clearance 92 ml/min; Glucose 92 mg/dl (70-99); Sodium 138 mmol/L (135-145); eGFR > 60.00
[2024-04-12 08:35] LABS: TSH Reflex To Free T4 4.59 uIU/ml (0.47-4.68)
[2024-04-12] MEDS: ZYRTEC 10 MG PO (09:02)
[2024-04-12] MEDS: ZESTRIL 2.5 MG PO (09:02)
[2024-04-12] MEDS: LOW STRENGTH ASPIRIN 81 MG PO (09:02)
[2024-04-12] MEDS: PLAVIX 75 MG PO (09:02)
--- NOTE | 2024-04-12 10:01 | W.PN.NEURO.1 ---
Today's Communication / Plan
-
.
Neuro Assessment/Plan
Assessment
This is a 59-year-old woman who presented to on 03/10/2024 with report of dysarthria starting on 04/09/24. Blood pressure 188/101 on arrival. She was not a candidate for TNK/IAT due to low NIHSS, no LVO.
-CT head wo contrast- unremarkable.
-CTA head/neck� Mild calcified plaque involving the origin of the left internal carotid artery, with estimated luminal diameter reduction of 40-50%. No other significant cervical carotid or vertebral artery plaque, and no critical stenosis,
dissection, or occlusion. No la posta of Carranza region aneurysm or stenosis. No cerebral artery significant plaque, stenosis, thrombus, or occlusion.
-MRI brain 04/11/24: 1.1 cm focus of restricted diffusion within the right centrum semiovale/alicea radiata of the right frontal lobe consistent with acute infarction.
-TTE 04/11/24: Unremarkable.
I. Right centrum semiovale/alicea radiata acute ischemic stroke; etiology likely hypertension vs small vessel disease.
II. Pathological hyperreflexia
III. Hypertensive urgency
IV. DLP
Plan
-Continue DAPT with aspirin 81mg and Plavix 75mg daily for 21 days. After 21 days, discontinue Plavix and continue aspirin 81mg daily only, indefinitely.
-Goal normotension.Monitor on telemetry.
-LDL goal <70. LDL is 168. Continue newly initiated atorvastatin 40mg daily.
-Goal normoglycemia, hbA1c is 5.7.
-NIHSS and neurological checks per unit guidelines.
-Provide patient with a stroke education packet.
-PT/OT/ST evaluations.
-DVT prophylaxis.
-Follow-up with Neurology as an outpatient in about 4 weeks.
Subjective/Objective
Subjective Data
Date of Service: April 12, 2024
No acute events overnight. Patient reports ongoing mild dysarthria. She denies any headache, dizziness, swallowing difficulty, numbness, weakness, chest pain, palpitations, and shortness of breath.
Objective Data
Vital Signs
Temp Pulse Resp BP Pulse Ox
98.2 F 71 20 160/88 95
04/12/24 07:50 04/12/24 09:02 04/12/24 07:50 04/12/24 09:02 04/12/24 07:50
Lab Results
04/12/24 06:58
04/12/24 06:58
Sodium 138 mmol/L (135-145) 04/12/24 06:58
Potassium 4.0 mmol/L (3.5-5.1) 04/12/24 06:58
BUN 24 mg/dl (7-17) H 04/12/24 06:58
Glucose 92 mg/dl (70-99) 04/12/24 06:58
Calcium 9.5 mg/dl (8.4-10.2) 04/12/24 06:58
LDL Cholesterol, Calc 168 mg/dl 04/11/24 06:02
Vitamin B12 458 pg/ml (239-931) 04/11/24 12:32
Patient Allergies
seasonal Allergy (Uncoded 04/10/24 12:06)
Itching
LDL Level: >70, statin ordered
Review of Systems
-
History Source: Patient
EENT: Negative Blurry Vision, Decreased Vision or Swallowing Difficulty
Respiratory: Negative Cough or Trouble Breathing
Cardiac: Negative Chest Pain or Palpitations
Abdomen/GI: Negative Nausea
Genitourinary: Negative Difficulty Voiding
Neuro: Speech Problem; Negative Dizzy, Headache, Weakness, Numbness, Ataxia or Tremors
Physical Exam
-
General: Well Developed, Well Nourished and No Apparent Distress
Eyes: No Ptosis and PERRLA
HEENT: Normocephalic and Atraumatic
Neck: Full Range of Motion
Respiratory: No Dyspnea
GI: Non-distended
Skin: Unremarkable
Extremities: No Clubbing, No Cyanosis and No Edema
Psych: Unremarkable
Extended Neurological Exam
Mood & Affect: Mood Unremarkable and Affect Unremarkable
Attention Span & Concentration: Awake, Alert and Interactive
Memory: Unremarkable (AAOx3) and Able to Recall
Tremor: Hand Tremor Absent and Head Tremor Absent
Involuntary Movement: None
Speech: Quantity Unremarkable, Rate of Production Unremarkable and Dysarthric
Cranial Nerve II: Left Eye: Pupillary Reactivity Unremarkable, Pupillary Size Unremarkable and Visual Booth Intact
Cranial Nerve II: Right Eye: Pupillary Reactivity Unremarkable, Pupillary Size Unremarkable and Visual Booth Intact
Cranial Nerves III, IV, : Extraocular Movement: Extraocular Movement Full in all Directions
Cranial Nerve V: Facial Sensation: Intact to Light Touch
Cranial Nerve VII: Facial Symmetry: Normal Facial Symmetry
Cranial Nerve VIII: Hearing: Unremarkable Hearing to Normal Conversational Volume
Cranial Nerves IX, X: Palate Movement: Palate Elevation Symmetric
Cranial Nerve XI: Shoulder Shrug: Unremarkable
Cranial Nerve XII: Tongue Protusion: Midline
Muscle Strength, Overall: Full Throughout
Muscle Bulk & Tone: Bulk Unremarkable and Tone Unremarkable
Pronator Drift: No Drift in Upper Extremities and No Drift in Lower Extremities
Deep Tendon Reflexes: Unremarkable Throughout
Cold Sensation: Unremarkable
Vibration Sensation: Unremarkable
Touch Sensation: Double Simultaneous Stimulation Unremarkable
Coordination: [id number] Testing Unremarkable
Babinski Sign: Absent Bilaterally
Modified Johana Score (MRS)
-
Modified Stutsman Scale (mRS): No significant disability. Able to carry out usual activities.
Score: 1
Data Reviewed
-
CT-A: Report Reviewed and Image Reviewed
CT Head: Report Reviewed and Image Reviewed
MRI Head: Report Reviewed and Image Reviewed
Carotid Ultrasound: Report Reviewed
Echocardiogram: Report Reviewed
Labs: Report Reviewed
Lipid Profile: Report Reviewed
HgbA1C: Report Reviewed
Reviewed with: Physician and Patient
Medications
-
Active Medications
Generic Name Dose Route Start Last Admin
Trade Name Freq PRN Reason Stop Dose Admin
Acetaminophen 650 mg 04/10/24 21:51
Acetaminophen 650 Mg Rectal Suppository RECTAL 05/08/24 21:50
Q4HPRN PRN
VARELA, mild pain, or temp >100.4F
Acetaminophen 650 mg 04/10/24 21:51
Acetaminophen 325 Mg Tablet PO 05/08/24 21:50
Q4HPRN PRN
VARELA, mild pain, or temp >100.4F
Amlodipine Besylate 5 mg 04/11/24 22:00 04/11/24 21:30
Amlodipine 5 Mg Tablet PO 05/09/24 21:59 5 mg
HS TAB Administration
Aspirin 81 mg 04/11/24 08:00 04/12/24 09:02
Aspirin 81 Mg Chewable Tablet PO 05/09/24 07:59 81 mg
DAILY TAB Administration
Atorvastatin Calcium 40 mg 04/11/24 18:00 04/11/24 17:16
Atorvastatin (Lipitor) 40 Mg Tablet PO 05/09/24 17:59 40 mg
QPM TAB Administration
Cetirizine HCl 10 mg 04/11/24 08:00 04/12/24 09:02
Cetirizine Hcl 10 Mg Tablet PO 05/09/24 07:59 10 mg
DAILY TAB Administration
Clopidogrel Bisulfate 75 mg 04/11/24 08:00 04/12/24 09:02
Clopidogrel 75 Mg Tablet PO 05/02/24 07:59 75 mg
DAILY TAB Administration
Lisinopril 2.5 mg 04/11/24 13:00 04/12/24 09:02
Lisinopril 2.5 Mg Tablet PO 05/09/24 12:59 2.5 mg
DAILY TAB Administration
Sodium Chloride 0 flush 04/10/24 23:00
Sodium Chloride 0.9% (Flush) Syringe IV 05/08/24 22:59
PER PROTOCOL TAB
Home Medications
�Medication �Instructions �Recorded
amlodipine 5 mg tablet 5 mg PO HS 04/14/21
cetirizine 10 mg tablet 10 mg PO DAILY 04/10/24
NIH Stroke Score
Subsequent NIH Scale
Date of Subsequent NIH Scale: 04/12/24
Time of Subsequent NIH Scale: 10:15
NIH Stroke Score
Level of Consciousness: 0 - Alert
LOC Questions: 0-Answers both correctly
LOC Commands: 0-Performs both correctly
Best Horizontal Gaze: 0-Normal
Visual Booth: 0=Normal, no visual loss
Facial Palsy: 0=Normal, symmetrical
Motor - Right Arm: 0=No drift 10 seconds
Motor - Left Arm: 0=No drift 10 seconds
Motor - Right Le-No drift 5 seconds
Motor - Left Le-No drift 5 seconds
Limb Ataxia: 0-Absent
Sensation: 0-Normal
Best Language: 0-No aphasia
Dysarthria: 1-Mild slurring
Extinction and Inattention: 0-No abnormality
Total Score:: 1
Modified Stutsman (mRS) Score
Modified Stutsman Scale (mRS): No significant disability. Able to carry out usual activities.
Score: 1
Alteplase Contraindication
Inclusion and Exclusion criteria reviewed: Yes
Reasons for NON-Tx with Thrombolytics ABSOLUTE Exclusions: Greater than 4.5 hrs from onset of sxs
IAT Contraindications: NIHSS < 6 and Imaging doesn't show large vessel occlusion as cause of stroke
--- NOTE | 2024-04-12 10:15 | PTOTSP ---
[facility] Evaluation
Mild dysarthria. Cognitive screener below normal (MOCA 8.1 Qatari with normal 26 or greater). See patient care note for details.
Recommend:
1. Outpatient [facility] evaluation
[2024-04-12 11:28] VITALS: BP 155/76
[2024-04-12 12:21] LABS: Syphilis/T. pallidum Ab Reflex Negative (Negative)
--- NOTE | 2024-04-12 13:04 | CON.CAR ---
Addendum entered and electronically signed by Eric Austin MD 04/12/24 16:10:
I saw and examined the patient.
The Program Engagement Director's note was reviewed and I agree with the note.
Comment:
GEN: No distress, awake, Ox3
HEENT: supple, anicteric, mmm
LUNGS: CTA, no wheezes/rales
CV: Reg, S1/S2, 1/6 syst LSB, no murmur
ABD: soft, BS+, NT/ND
EXT: No edema
NEURO: Mild dysarthria/facial droop
SKIN: No rash
Plan:
59-year-old female with past medical's of hypertension, hyperlipidemia and obesity presents with acute right frontal lobe infarction. Echo with preserved ejection fraction and no significant valve disease. Telemetry with no evidence of arrhythmia.
We were asked to evaluate her from a cardiovascular standpoint.
CT of the head neck reveals left internal carotid stenosis of 40 to 50%.
Her brother has a prothrombin [id number] gene mutation.
Will arrange 14-day outpatient monitor to look for paroxysmal atrial fibrillation. Will hold off on JASKARAN right now as etiology of stroke likely from hypertension.
Agree with plan for hematology evaluation as outpatient.
Continue aspirin and Plavix for now.
Continue amlodipine and lisinopril for blood pressure control. Would allow for some permissive hypertension in the acute phase but long-term will need aggressive blood pressure management.
Original Note:
Consultation
Consultation Request
Date/Time Consultation Requested: 04/12/2024
Date/Time Consultation Performed: 04/12/2024
Requesting Provider: Dr. Douglas
Performing Provider: Roslyn Al PA-C for Dr. Austin
Reason for Consultation: Acute stroke
Medical History
-
History of Present Illness:
Patient is a 59-year-old female with past medical history significant for hypertension, hyperlipidemia, kidney stones with extraction, obesity and cholecystectomy who presented to emergency department on 04/09/2024 with complaints of thickened and
slurred speech which started around dinnertime on the evening of 04/09/2024. Symptoms persisted and she decided to seek emergency medical attention on 04/10/2024. On arrival patient was noted to be hypertensive with blood pressure of 188/101. She
was provided 324 mg of chewable aspirin. Head CT was negative for acute abnormality. CT of head and neck showed left internal carotid stenosis of 40 to 50%. There was no other significant carotid or intracranial stenosis, dissection or occlusion.
EKG showed sinus rhythm. Troponin was negative. Patient went on to have MRI of brain on 04/11/2024 which showed 1.1 cm focus of restricted diffusion within the right centrum semiovale/alicea radiata of the right frontal lobe consistent with acute
infarction. Patient underwent echocardiogram which showed preserved ejection fraction and no significant valvular disease. Patient was monitored on telemetry throughout her admission without evidence of arrhythmia. Cardiology being asked to see
patient to assist in arranging outpatient monitor.
Patient reports prior to onset of her stroke symptoms she is active around her house and denies any concerning cardiac symptoms including chest pain, shortness of breath, dizziness, lightheadedness, edema, orthopnea, palpitations.
At time of this evaluation patient continues to complain of mild dysarthria/thickened speech.
PMH:
Stroke of right centrum semiovale, right frontal lobe (04/09/2024)
Hypertension
Hyperlipidemia
Kidney stones with extraction in 2020
Obesity
Cholecystectomy
Past Medical History
Past Medical History: Other (see HPI)
Past Surgical History: Cholecystectomy and Urological (Kidney stone extraction 2020)
Social History
Tobacco: Non-Smoker
Alcohol: None
Drug: None
Personal: Single
Living: Other (Lives with significant other/boyfriend)
Employment: Employed
Family History
Family History: Hypertension (Older brother) and Other (Younger brother has clotting disorder (Prothrombin [id number] mutation))
Allergies / Home Medications
Allergy/AdvReac Type Severity Reaction Status Date / Time
seasonal Allergy Itching Uncoded 04/10/24 12:06
�Medication �Instructions �Recorded �Confirmed �Type
amlodipine 5 mg tablet 5 mg PO HS 04/14/21 04/10/24 History
cetirizine 10 mg tablet 10 mg PO DAILY 04/10/24 04/10/24 History
Review of Systems
-
History Source: Patient
All other systems: Negative unless noted
Physical Exam
Vital Signs
Temp Pulse Resp BP Pulse Ox
97.6 F 71 20 155/76 95
04/12/24 11:28 04/12/24 11:28 04/12/24 11:28 04/12/24 11:28 04/12/24 11:28
Lab Results
04/12/24 06:58
04/12/24 06:58
Troponin I < 0.012 ng/ml 04/10/24 13:36
Impression / Plan
-
PCP: [facility] medical
Dry Heat Cabinet Attendant: None prior to admission, initial consultation Dr. Austin
Impression:
Presented 04/10/2024 with slurred/thickened speech/dysarthria which started on 04/09/2024
Acute Stroke of right centrum semiovale, right frontal lobe (04/09/2024)
Hypertensive urgency on admission
Hypertension
Hyperlipidemia
Kidney stones with extraction in 2020
Obesity
Cholecystectomy
Echocardiogram 04/11/2024: EF 55 to 60%. Normal LV & RV size and function. Atria normal. Mild TR with PAP 27 mmHg otherwise no significant valvular disease
Carotid duplex 04/11/2024:Mild mixed plaque right carotid bulb and internal carotid artery. Mild left carotid bulb mixed plaque. Velocity profiles consistent with 50% bilateral internal carotid artery stenosis. Antegrade flow bilateral vertebral
arteries.
Plan:
Presented 04/10/2024 with slurred/thickened speech/dysarthria which started on 04/09/2024. NIH stroke scale score low and not a candidate for TNK. No large vessel occlusion so deemed not candidate for IAT. Noted to have acute Stroke of right centrum
semiovale, right frontal lobe (04/09/2024). Plan for dual antiplatelet therapy with aspirin and Plavix x 21 days then aspirin indefinitely.
Hypertensive urgency on admission (188/101). BP improved throughout admission but still suboptimally controlled. Patient was maintained on amlodipine as outpatient and lisinopril was added during admission. May need to uptitrate lisinopril if
blood pressure remains suboptimally controlled.
Prestatin lipids TC 239, HDL 55, LDL 168, triglycerides 83, hemoglobin A1c 5.7%. Patient now on atorvastatin 40 mg daily. Would repeat lipids and CMP in 2 to 3 months as outpatient. If LDL greater than 70 would consider up titration of statin.
Echocardiogram during admission showed normal LV size and function and no significant valvular disease.
Carotid duplex showed less than 50% bilateral ICA stenosis. Continue aggressive medical therapy with antiplatelet therapy and statin
Per personal review of telemetry patient has remained in sinus rhythm throughout admission. Would recommend 2-week outpatient monitor to rule out atrial arrhythmia as cause of stroke.
Of note patient reports her younger brother had a history of blood clot and was diagnosed with prothrombin [id number] clotting disorder which resulted in production of an altered form of prothrombin that is more active and clotting. Would recommend
patient be evaluated for this deficiency with heme-onc. If patient found to be positive for gene she most likely would benefit from long-term anticoagulation.
Will arrange for outpatient alarm security or surveillance monitor and follow-up upon completion. Stable from cardiac standpoint for discharge
HPI 04/12/2024:
Patient is a 59-year-old female with past medical history significant for hypertension, hyperlipidemia, kidney stones with extraction, obesity and cholecystectomy who presented to emergency department on 04/09/2024 with complaints of thickened and
slurred speech which started around dinnertime on the evening of 04/09/2024. Symptoms persisted and she decided to seek emergency medical attention on 04/10/2024. On arrival patient was noted to be hypertensive with blood pressure of 188/101. She
was provided 324 mg of chewable aspirin. Head CT was negative for acute abnormality. CT of head and neck showed left internal carotid stenosis of 40 to 50%. There was no other significant carotid or intracranial stenosis, dissection or occlusion.
EKG showed sinus rhythm. Troponin was negative. Patient went on to have MRI of brain on 04/11/2024 which showed 1.1 cm focus of restricted diffusion within the right centrum semiovale/alicea radiata of the right frontal lobe consistent with acute
infarction. Patient underwent echocardiogram which showed preserved ejection fraction and no significant valvular disease. Patient was monitored on telemetry throughout her admission without evidence of arrhythmia. Cardiology being asked to see
patient to assist in arranging outpatient monitor.
Patient reports prior to onset of her stroke symptoms she is active around her house and denies any concerning cardiac symptoms including chest pain, shortness of breath, dizziness, lightheadedness, edema, orthopnea, palpitations.
At time of this evaluation patient continues to complain of mild dysarthria/thickened speech.
Data Reviewed
-
EKG: Report Reviewed by me, Discussed with Physician and Discussed with Patient
CT Scan: Report Reviewed by me, Discussed with Physician and Discussed with Patient
Ultrasound: Report Reviewed by me, Discussed with Physician and Discussed with Patient
MRI: Report Reviewed by me, Discussed with Physician and Discussed with Patient
Medical Tests (Nuc Med, Echo etc): Report Reviewed by me, Discussed with Physician and Discussed with Patient
Labs: Labs Reviewed by me, Discussed with Physician and Discussed with Patient
Old Records: Reviewed
[2024-04-12 16:19] VITALS: BP 148/95
--- NOTE | 2024-04-12 17:08 | W.DCSUMMARY ---
Addendum entered and electronically signed by Juan Sykes MD 04/12/24 23:35:
Read, reviewed, and agree. See same day progress note for additional details.
Eh Sykes MD
Original Note:
Documented by User: Nimesh Holland MD, Resident 04/12/24 17:45
Discharge Summary
Discharge Data
Date of Admission: 04/10/24
Date of Discharge: 04/12/24
-
Pending Results: No
Hospital Course
Discharging Physician : Nimesh Holland MD ; Juan Sykes MD
Disposition : Home
Primary care physician : [facility]
Principal Discharge diagnosis : Acute CVA; intermittent dysarthria,
Chronic Discharge diagnosis : Hypertension, seasonal allergies
Hospital Course : 59-year-old female with past medical history significant for hypertension, hyperlipidemia, kidney stones with extraction, obesity and cholecystectomy who presented to emergency department on 04/09/2024 with complaints of thickened
and slurred speech which started around dinnertime on the evening of 04/09/2024. Symptoms persisted and she decided to seek emergency medical attention on 04/10/2024.
1. Acute CVA; dysarthria-intermittent
Patient and the family member noticed obvious change from baseline however he was very difficult to appreciate on physical exam.She was given 324 mg of chewable aspirin and loading dose of Plavix. Neurology was consulted. Head CT was negative for
acute abnormality. CT of head and neck showed left internal carotid stenosis of 40 to 50%. There was no other significant carotid or intracranial stenosis, dissection or occlusion. EKG showed sinus rhythm. Troponin was negative.
MRI was also ordered and it showed 1.1 cm focus of restricted diffusion within the right centrum semiovale/alicea radiata of the right frontal lobe consistent with acute infarction. She also underwent an echocardiogram which showed preserved
ejection fraction with no significant valvular disease. Patient was monitored on telemetry throughout admission without evidence of any arrhythmia. Cardiology was consulted by neurology. Even though there was no arrhythmias on the telemetry they
recommended to place a carton waxing machine operator to monitor for 2 weeks to check for any possible cardiac causes of stroke. Prestatin lipids TC 239, HDL 55, LDL 168, triglycerides 83, hemoglobin A1c 5.7%. She was started on atorvastatin 40 mg at bedtime.
ESR and CRP were slightly elevated. Vitamin B12, folate and TSH were within normal limits.
At the time of discharge she was instructed to continue aspirin 81 mg indefinitely. Plavix 75 mg daily for next 19 days to complete total course of 21 days. She was also instructed to continue atorvastatin 40 mg at bedtime and repeat lipid profile
in 2 to 3 months and if LDL continues to stay more than 70 consider titrating the statin. Speech therapy recommended outpatient [employer] and brochure was provided to the patient.
2. Hypertensive urgency on admission(188/101)
She has a known history of hypertension and uses amlodipine 5 mg at bedtime. At the time of admission she was found to be having hypertensive urgency with blood pressure of 188/101. In addition to her other medication she was started on lisinopril
2.5 mg daily. At the time of discharge she was instructed to follow-up with PCP and consider up titration of lisinopril if blood pressure continues to remain high. Overall her blood pressure was significantly improved during her stay at the
hospital with current medications.
3. Seasonal allergies
She was continued on her home cetirizine 10 mg daily
Important imaging findings :
CT Head W/o Iv Contrast: No acute intracranial abnormality noted.
CT Head & Neck Angio W/wo IV: Mild calcified plaque involving the origin of the left internal carotid artery, with estimated luminal diameter reduction of 40-50%.
No other significant cervical carotid or vertebral artery plaque, and no critical stenosis, dissection, or occlusion.
No pit river of [place] region aneurysm or stenosis.
No cerebral artery significant plaque, stenosis, thrombus, or occlusion.
MR Brain Without Contrast:1.1 cm focus of restricted diffusion within the right centrum semiovale/alicea radiata of the right frontal lobe consistent with acute infarction.
Procedure findings : EKG: NORMAL SINUS RHYTHM
MINIMAL VOLTAGE CRITERIA FOR LVH, MAY BE NORMAL VARIANT ( R in aVL )
NONSPECIFIC T WAVE ABNORMALITY
Echocardiogram 04/11/2024:
1. Left ventricle: Normal size and function with an estimated ejection
fraction of 55-60%. Normal diastolic function
2. Right ventricle: Normal
3. Atria: Normal
Valve: No mitral regurgitation
5. Aortic valve: Trileaflet. No aortic stenosis or aortic insufficiency
6. Tricuspid valve: Mild tricuspid regurgitation with estimated pulmonary
artery systolic pressures of 27 mmHg
7. No prior studies for comparison
Carotid duplex 04/11/2024:Mild mixed plaque right carotid bulb and internal carotid artery. Mild left carotid bulb mixed plaque. Velocity profiles consistent with 50% bilateral internal carotid artery stenosis. Antegrade flow bilateral vertebral
arteries.
Discharge Plan
-
Patient Disposition: Home (Routine Discharge)
Discharge Diagnosis/Procedures: Acute CVA; intermittent dysarthria, hypertensive urgency, seasonal allergies
Condition: Good
Diet: Low Cholesterol
Activity: No restrictions
Driving Restrictions: Not until seen by your Dr
Bathing Restrictions: None
Others Tests: 2-week outpatient carton waxing machine operator which was applied prior to discharge from hospital.
Other Services: ST
Referrals:
[facility] [Provider Group] - in less than 1 week
Roslyn Al PA-C [Specified Professional Personl] - 05/06/24 10:20 am (You have outpatient cardiology follow-up with Roslyn Al PA-C on May 06 at 10:20 AM [address] [facility] which is located behind [facility]. If you are
unable to make this appointment please call [phone] to reschedule.)
Eric Austin MD [Active] - in two weeks
Rosi Douglas MD [Active] - in one month
Additional Discharge Medication Instructions: Continue aspirin 81 mg indefinitely
Continue Plavix 75 mg daily to complete total of 21 days
Take atorvastatin 40 mg daily at bedtime
Take lisinopril 2.5 mg 1 tablet by mouth daily; consider uptitrating with primary care physician if blood pressure remains elevated
Follow-up with [facility] as outpatient in 1 month
Repeat lipid profile in 2 to 3 months if LDL remains elevated consider up-titrating statin with PCP([facility])
Outpatient speech-language therapy
Outpatient carton waxing machine operator for 2 weeks and follow-up with cardiology.
Prescriptions:
New
atorvastatin 40 mg Tablet
40 mg PO QPM Qty: 30 0RF
aspirin 81 mg Tablet,Chewable
81 mg PO DAILY Qty: 30 0RF
clopidogrel 75 mg Tablet
75 mg PO DAILY Qty: 19 0RF
lisinopril 2.5 mg Tablet
2.5 mg PO DAILY Qty: 30 0RF
Continued
amlodipine 5 MG tablet
5 mg PO HS
cetirizine 10 mg Tablet
10 mg PO DAILY
Discharge Orders:
Discharge Patient (As Directed); Ordered 04/12/24
Ordered By: Nimesh Holland
Discharge Date and Time
Discharge Date/Time: 04/12/24 16:47
Print Language: MALAGASY

Documented by User: Juan Sykes MD 04/12/24 23:30
Discharge Summary
Discharge Data
Date of Admission: 04/10/24
Date of Discharge: 04/12/24
Discharge Plan
-
Patient Disposition: Home (Routine Discharge)
Discharge Diagnosis/Procedures: Acute CVA; intermittent dysarthria, hypertensive urgency, seasonal allergies
Condition: Good
Diet: Low Cholesterol
Activity: No restrictions
Driving Restrictions: Not until seen by your Dr
Bathing Restrictions: None
Others Tests: 2-week outpatient carton waxing machine operator which was applied prior to discharge from hospital.
Other Services: ST
Referrals:
[facility] [Provider Group] - in less than 1 week
Roslyn Al PA-C [Specified Professional Personl] - 05/06/24 10:20 am (You have outpatient cardiology follow-up with Roslyn Al PA-C on May 06 at 10:20 AM [address] [place] which is located behind [facility]. If you are
unable to make this appointment please call [phone] to reschedule.)
Eric Austin MD [Active] - in two weeks
Rosi Douglas MD [Active] - in one month
Additional Discharge Medication Instructions: Continue aspirin 81 mg indefinitely
Continue Plavix 75 mg daily to complete total of 21 days
Take atorvastatin 40 mg daily at bedtime
Take lisinopril 2.5 mg 1 tablet by mouth daily; consider uptitrating with primary care physician if blood pressure remains elevated
Follow-up with [facility] as outpatient in 1 month
Repeat lipid profile in 2 to 3 months if LDL remains elevated consider up-titrating statin with PCP([facility])
Outpatient speech-language therapy
Outpatient carton waxing machine operator for 2 weeks and follow-up with cardiology.
Prescriptions:
New
atorvastatin 40 mg Tablet
40 mg PO QPM Qty: 30 0RF
aspirin 81 mg Tablet,Chewable
81 mg PO DAILY Qty: 30 0RF
clopidogrel 75 mg Tablet
75 mg PO DAILY Qty: 19 0RF
lisinopril 2.5 mg Tablet
2.5 mg PO DAILY Qty: 30 0RF
Continued
amlodipine 5 MG tablet
5 mg PO HS
cetirizine 10 mg Tablet
10 mg PO DAILY
Discharge Orders:
Discharge Patient (As Directed); Ordered 04/12/24
Ordered By: Nimesh Holland
Discharge Date and Time
Discharge Date/Time: 04/12/24 16:47
Print Language: MALAGASY
[2024-04-14 03:36] LABS: Copper, Serum 160.1 ug/dL (80.0-155.0)
[2024-04-14 03:39] LABS: Zinc 83.1 ug/dL (60.0-120.0)
== END 2024-04-12 16:47 | disposition home or self-care (01) | DRG 66 ==
LOC: 4 EAST ACU 10:32
PROVIDERS: Clinical Nurse Specialist Family Health; Emergency Medicine; Student in an Organized Health Care Education/Training Program; ADMITTING PHYSICIAN Internal Medicine; ATTENDING PHYSICIAN Family Medicine; CONSULT PHYSICIAN Internal Medicine Cardiovascular Disease; EMERGENCY PHYSICIAN Emergency Medicine; OTHER PHYSICIAN Psychiatry & Neurology Neurology
DX: I63.9 Cerebral infarction, unspecified (principal); I65.23 Occlusion and stenosis of bilateral carotid arteries; Z79.82 Long term (current) use of aspirin; I10 Essential (primary) hypertension; Z82.49 Family history of ischemic heart disease and other diseases of the circulatory system; I16.0 Hypertensive urgency; J30.2 Other seasonal allergic rhinitis; E78.5 Hyperlipidemia, unspecified; R29.701 NIHSS score 1; Z79.02 Long term (current) use of antithrombotics/antiplatelets; Z79.899 Other long term (current) drug therapy; Z87.442 Personal history of urinary calculi
CPT/HCPCS: 70450; 70496; 70498; 70551; 80048; 80053; 80061; 82525; 82607; 82746; 83036; 84443; 84484; 84630; 85025; 85652; 86140; 86780; 92523; 93005; 93306; 93880; 97161; 99285; G0378; Q9967

== ENCOUNTER 2024-05-06 08:29 | Outpatient (RCR) | payer OTHER, SELFPAY | END 2024-05-06 13:52 | disposition home or self-care (01) | LOC: RST 08:29 | PROVIDERS: ATTENDING PHYSICIAN Family Medicine | DX: I69.322 Dysarthria following cerebral infarction (principal); I69.314 Frontal lobe and executive function deficit following cerebral infarction | CPT/HCPCS: 92523 ==